=== PATIENT | female | born 1965 | race Caucasian/White ===

== ENCOUNTER 2022-03-23 19:18 | Emergency (ER) | payer BC ==
[~2022-03-23] VITALS: Ht 154.9 cm; Wt 68.0 kg
[2022-03-23 19:27] VITALS: BP_SYST 106
--- NOTE | 2022-03-23 20:17 | NUR ---
PT HERE C/O ABDOMINAL AND BACK PAIN X1 WK. DENIES N/V/D, DENIES DYSURIA.
[2022-03-23 20:48] LABS: BASOPHILS % (AUTO) 0.1 % (0.0-2.0); EOSINOPHILS % (AUTO) 0.5 % (0.0-4.0); HEMATOCRIT 35.6 % (36-48); LYMPHOCYTES # (AUTO) 1.4 K/uL (1.0-5.5); LYMPHOCYTES % (AUTO) 30.2 % (20.5-51.5); MEAN CORPUSCULAR VOLUME 86 fL (79.0-98.0); MONOCYTES # (AUTO) 0.1 K/uL (0.0-1.0); MONOCYTES % (AUTO) 3.2 % (1.7-9.3); NEUTROPHILS # (AUTO) 2.9 K/uL (1.8-7.7); PLATELET COUNT (AUTO) 115 K/uL (130-430); RED BLOOD CELL COUNT(AUTO) 4.14 MIL/uL (4.2-6.2); RED CELL DISTRIBUTION WIDTH 13.7 % (9.0-15.0); WHITE BLOOD COUNT (AUTO) 4.5 K/uL (4.8-10.8)
[2022-03-23 21:00] LABS: BILIRUBIN,URINE NEGATIVE (NEGATIVE); BLOOD, URINE 2+ (NEGATIVE); CLARITY/URINE CLEAR (CLEAR); COLOR,URINE YELLOW (YELLOW); GLUCOSE,URINE NEGATIVE (NEGATIVE); KETONES,URINE 1+ (NEGATIVE); NITRITE, URINE NEGATIVE (NEGATIVE); PROTEIN URINE NEGATIVE (NEGATIVE); UROBILINOGEN,URINE 0.2 (0.2-1.0)
[2022-03-23 21:09] LABS: CALCIUM 8.8 mg/dL (8.4-11.0); CREATININE 0.73 mg/dL (0.55-1.30); POTASSIUM 3.5 mmol/L (3.5-5.1)
[2022-03-23 21:23] LABS: ALBUMIN 3.6 g/dL (3.4-4.8); TOTAL BILIRUBIN 2.4 mg/dL (0.0-1.0)
[2022-03-23 21:48] LABS: LEUKOCYTE ESTERASE ,URINE TRACE (NEGATIVE)
[2022-03-23 21:50] LABS: BACTERIA,URINE FEW /HPF (None Seen); MUCUS,URINE None Seen /LPF (None Seen); RBC,URINE 0-3 /HPF (0-3)
--- NOTE | 2022-03-23 22:21 | NUR ---
Note viji in ED - 03/23/22 at 2339 by [email or web address] Patient to ER bed 8 to [facility] for evaluation. Side rails up. Report given to NEW SIHRLEY (rosemary)].
--- NOTE | 2022-03-23 22:29 | NUR ---
PT ASISTED TO ROOM 8. SHE AMBULATED WITH STEADY GAIT
--- NOTE | 2022-03-23 22:33 | NUR ---
REPORT GIVEN TO NEW
[2022-03-23] MEDS ORDERED: KETOROLAC TROMETHAMINE 60 MG/2 ML VIAL IM ONE (23:15)
--- NOTE | 2022-03-23 23:30 | NUR ---
RECEIVER STOCKER DR. FELDMAN FOR PELVIC EXAM
[2022-03-24] MEDS ORDERED: NITR-85 PO (01:08)
--- NOTE | 2022-03-24 01:29 | NUR ---
Patient given written and verbal discharge instructions and verbalizes understanding. ER MD discussed with patient the results and treatment provided. Patient in stable condition. ID arm band removed. Rx of MACROBID given. Patient educated on pain management and to follow up with PMD. Pain Scale 0/10. Opportunity for questions provided and answered. Medication side effect fact sheet provided.
== END 2022-03-24 01:29 | disposition home or self-care (01) ==
LOC: SED 19:18
DX: N39.0 Urinary tract infection, site not specified (principal); R10.13 Epigastric pain; R10.32 Left lower quadrant pain; Z79.899 Other long term (current) drug therapy
CPT/HCPCS: 99284; 80053; 83690; 85025; 87210; 36415; 96372; 81000; G0482; J1885